=== PATIENT | female | born 1990 | race Caucasian/White ===

== ENCOUNTER 2017-12-20 15:26 | Emergency (ER) | payer MEDICAID, OTHER ==
[~2017-12-20] VITALS: Ht 157.5 cm; Wt 63.5 kg
--- NOTE | 2017-12-20 15:35 | NUR ---
MULTIPLE COMPLAINTS: NAUSEA, DIARRHEA, DIZZINESS, ABD DISCOMFORT X2 WEEKS, NAD NOTED, VSS, RESP EVEN AND UNLABORED, PT WAS PUT ON MONITOR AND WAITING FOR MD CARLSON.
--- NOTE | 2017-12-20 15:45 | NUR ---
Note judson in EDM - 12/20/17 at 1631 by GARR[facility] FROM [facility]: MED CLEARANCE FOR GPS ADMIT, INCREASED AGITATION. NAD NOTED, VSS, RESP EVEN AND UNLABORED, PT WAS PUT ON MONITOR AND WAITING FOR MD CARLSON.
[2017-12-20] MEDS ORDERED: IV NS 0.9% 1,000 ML BAG IV ONE (16:00)
[2017-12-20] MEDS ORDERED: KETOROLAC TROMETHAMINE INJ 30 MG/ML VIAL IV ONE (16:00)
[2017-12-20] MEDS ORDERED: ONDANSETRON HCL/PF 4 MG/2 ML VIAL IVP ONE (16:00)
[2017-12-20] MEDS ORDERED: ONDANSETRON HCL/PF 4 MG/2 ML VIAL ONE (16:08)
[2017-12-20] MEDS ORDERED: KETOROLAC TROMETHAMINE INJ 30 MG/ML VIAL ONE (16:08)
[2017-12-20 16:17] LABS: APPEARANCE,URINE Clear (CLEAR); BILIRUBIN,URINE Negative (NEGATIVE); BLOOD, URINE Large Ery/uL (NEGATIVE); COLOR,URINE Yellow (YELLOW); KETONES,URINE Negative (NEGATIVE); LEUKOCYTE ESTERASE ,URINE Negative (NEGATIVE); NITRITE, URINE Negative (NEGATIVE); PROTEIN,URINE Negative (NEGATIVE); UGLUCOSE Negative (NEGATIVE); UROBILINOGEN,URINE 0.2 EU/dL (0.2)
[2017-12-20 16:23] LABS: BASOPHILS # (AUTO) 0.3 /CMM (0.0-0.2); BASOPHILS % (AUTO) 2.1 % (0.0-2.0); EOSINOPHILS % (AUTO) 1.2 % (0.0-6.0); HEMATOCRIT 39 % (33-45); LYMPHOCYTES # (AUTO) 2.4 /CMM (0.8-4.8); LYMPHOCYTES % (AUTO) 18.6 % (20.0-44.0); MEAN CORPUSCULAR HGB CONC 34 g/dl (31.0-36.0); MEAN CORPUSCULAR VOLUME 81 fL (82-100); MONOCYTES # (AUTO) 0.5 /CMM (0.1-1.30); MONOCYTES % (AUTO) 4.1 % (2.0-12.0); NEUTROPHILS # (AUTO) 9.7 /CMM (1.8-8.9); PLATELET COUNT (AUTO) 377 /CMM (150-450); RED BLOOD CELL COUNT(AUTO) 4.79 MIL/uL (4.0-5.2); WHITE BLOOD COUNT (AUTO) 13.1 K/uL (4.3-11.0)
[2017-12-20 16:33] LABS: CREATININE 0.7 mg/dL (0.6-1.3); POTASSIUM 4.6 mmol/L (3.5-5.1)
[2017-12-20 16:37] LABS: INR 0.95 (0.85-1.15)
[2017-12-20 16:39] LABS: ALBUMIN 4.2 g/dL (3.4-5.0); BILIRUBIN,TOTAL 0.7 mg/dL (0.2-1.0); TOTAL PROTEIN, SERUM 8.4 g/dL (6.4-8.2)
[2017-12-20 16:48] LABS: BACTERIA,URINE Few /HPF (None Seen); SQUAMOUS EPITHELIAL CELL,UR Few /HPF (None Seen); WBC,URINE 0-2 /HPF (0-3)
[2017-12-20 18:25] VITALS: BP 123/75
--- NOTE | 2017-12-20 18:26 | NUR ---
Patient discharged to home in stable condition. Written and verbal after care instructions given. Patient verbalizes understanding of instruction.IV removed. Catheter intact and site benign. Pressure and 4x4 applied to site. No bleeding noted. Prescriptions given.
== END 2017-12-20 18:29 | disposition home or self-care (01) ==
LOC: ER 15:29
DX: K58.0 Irritable bowel syndrome with diarrhea (principal)
CPT/HCPCS: 36415; 80048; 80076; 81001; 83690; 84703; 85025; 85730; 86850; 96361; 96374; 99284; A4606; J1885; J7030; Z7610; 81000-TC; J2405